=== PATIENT | male | born 1970 | race Caucasian/White ===

== ENCOUNTER 2016-06-03 19:55 | Inpatient (IN) | payer MEDICARE, OTHER ==
[~2016-06-03] VITALS: Ht 188 cm; Wt 74.8 kg
[2016-06-03 22:15] LABS: HEMOGLOBIN 14.3 gm/dl (14.0-17.5); RED BLOOD COUNT 4.49 M/UL (4.20-5.50); WHITE BLOOD COUNT 20.8 K/UL (4.5-11.0)
[2016-06-03 22:32] LABS: BUN/CREATININE RATIO 12 (0-10)
[2016-06-04] MEDS ORDERED: TYLENOL WITH C1 EACH PO (03:56)
[2016-06-04] MEDS ORDERED: ALPRAZOLAM0.5 MG PO (03:56)
[2016-06-04] MEDS ORDERED: PRILOSEC OTC20 MG PO (03:57)
[2016-06-04 09:09] LABS: HEMOGLOBIN 13.9 gm/dl (14.0-17.5)
[2016-06-05 04:08] LABS: HEMOGLOBIN 12.6 gm/dl (14.0-17.5); RED BLOOD COUNT 3.98 M/UL (4.20-5.50); WHITE BLOOD COUNT 9.5 K/UL (4.5-11.0)
[2016-06-05 04:27] LABS: BUN/CREATININE RATIO 9 (0-10)
[2016-06-06 06:34] LABS: HEMOGLOBIN 12.4 gm/dl (14.0-17.5); RED BLOOD COUNT 3.94 M/UL (4.20-5.50); WHITE BLOOD COUNT 9.7 K/UL (4.5-11.0)
[2016-06-06 06:58] LABS: BUN/CREATININE RATIO 10 (0-10)
[2016-06-07 04:40] LABS: HEMOGLOBIN 12.1 gm/dl (14.0-17.5); RED BLOOD COUNT 3.84 M/UL (4.20-5.50)
[2016-06-07 04:42] LABS: WHITE BLOOD COUNT 19.2 K/UL (4.5-11.0)
[2016-06-07 04:57] LABS: BUN/CREATININE RATIO 15 (0-10)
[2016-06-07] MEDS ORDERED: NORCO 10-325 T1 EACH PO (10:34)
[2016-06-07] MEDS ORDERED: LOPRESSOR 25 MG25 MG PO (10:34)
[2016-06-07] MEDS ORDERED: THERAGRAN TAB1 EA PO (10:36)
--- NOTE | 2016-06-08 05:22 | NUR ---
care assumed from ariel phelps. en
--- NOTE | 2016-06-08 05:29 | NUR ---
care assumed from michelle phelps rn @ [id number].
[2016-06-08 05:58] LABS: HEMOGLOBIN 12.1 gm/dl (14.0-17.5); RED BLOOD COUNT 3.87 M/UL (4.20-5.50)
[2016-06-08 06:01] LABS: WHITE BLOOD COUNT 13.4 K/UL (4.5-11.0)
[2016-06-08 06:15] LABS: BUN/CREATININE RATIO 13 (0-10)
[2016-06-08] MEDS ORDERED: FOLIC ACID 1 MG1 MG PO (14:34)
[2016-06-08] MEDS ORDERED: THIAMINE HCL100 MG PO (14:35)
[2016-06-08] MEDS ORDERED: LISINOPRIL10 MG PO (14:36)
[2016-06-08] MEDS ORDERED: HABITROL 14 MG P1 EA TD (14:44)
== END 2016-06-08 16:14 | disposition home or self-care (01) | DRG 483 ==
LOC: ER1 19:55 → M/S 06-04 01:17 → ZEROF 06-04 01:17 → M/S 06-04 03:35
PROVIDERS: Emergency Medicine; Internal Medicine; Physician Assistant; ADMIT Orthopaedic Surgery
PROC: 0PSHXZZ Reposition Right Radius, External Approach (ICD-10-PCS; principal; 2016-06-04 02:00)
PROC: 0KB90ZZ Excision of Right Lower Arm and Wrist Muscle, Open Approach (ICD-10-PCS; principal; 2016-06-04 02:00)
PROC: 0XQBXZZ Repair Right Elbow Region, External Approach (ICD-10-PCS; principal; 2016-06-04 02:00)
PROC: BP1 Imaging, Non-Axial Upper Bones, Fluoroscopy (ICD-10-PCS; 2016-06-06)
PROC: 0MQ30ZZ Repair Right Elbow Bursa and Ligament, Open Approach (ICD-10-PCS; 2016-06-06)
PROC: 0RRL0JZ Replacement of Right Elbow Joint with Synthetic Substitute, Open Approach (ICD-10-PCS; 2016-06-06)
DX: S52.121B Displaced fracture of head of right radius, initial encounter for open fracture type I or II (principal); E87.1 Hypo-osmolality and hyponatremia; W13.2XXA Fall from, out of or through roof, initial encounter; F17.210 Nicotine dependence, cigarettes, uncomplicated; I48.91 Unspecified atrial fibrillation; F10.129 Alcohol abuse with intoxication, unspecified; I16.0 Hypertensive urgency; F41.9 Anxiety disorder, unspecified
CPT/HCPCS: ECHO; 36415; 70450; 71010; 72125; 72131; 73030; 73060; 73070; 73080; 73090; 73100; 73200; 76000; 80048; 80053; 81001; 82550; 82553; 83690; 83735; 84132; 84439; 84443; 84484; 85014; 85018; 85025; 85027; 85610; 85730; 87086; 90471; 90715; 93005; 93306; 96361; 96365; 96367; 96375; 96376; 99285; C1776; G0480; J0690; J1885; J2250; J2270; J2405; J2795; J3010; J7030; J7050; J7120; Q9962